=== PATIENT | female | born 1995 | race Caucasian/White ===

== ENCOUNTER 2022-01-19 22:21 | Inpatient (IN) ==
[~2022-01-19 22:21] MED LIST: *HR* Nalbuphine 10 MG/ML AMPUL IV PRN; Azithromycin 500 MG in 0.9 % Sodium Chloride 250 ML IVPB PRN; Famotidine 20 MG/2 ML VIAL IVP PRN; Metoclopramide 10 MG/2 ML VIAL IVP PRN; Naloxone 0.4 MG/ML INJ IVP PRN; Ondansetron 4 MG/2 ML VIAL IVP PRN
[2022-01-19 22:42] LABS: Basophils % 0.2 %; Eosinophils # 0.1 K/mcL (0.0-0.6); Eosinophils % 0.9 %; Hemoglobin 12.3 g/dL (11.5-15.4); Immature Granulocytes % 1.3 % (0-4); Lymphocytes # 2.3 K/mcL (0.6-4.6); Lymphocytes % 17.4 %; Mean Corpuscular HGB Conc 34.2 g/dL (31.6-35.5); Mean Corpuscular Hemoglobin 31.5 pg (28.0-33.3); Mean Corpuscular Volume 92.3 fL (83.0-100.0); Mean Platelet Volume 9.8 fL (9.4-12.4); Monocytes % 7.4 %; Neutrophils # 9.7 K/mcL (1.6-8.9); Platelet Count 184 K/mcL (140-400); Red Cell Distribution Width 13.4 % (11.5-14.5); Segmented Neutrophils % 72.8 %; White Blood Count 13.4 K/mcL (4.3-11.1)
[2022-01-19 22:53] LABS: Amphetamine Screen,Urine Negative ng/mL (Cutoff=1000); Barbiturate Screen,Urine Negative ng/mL (Cutoff=200); Benzodiazepines Screen,Urine Negative ng/mL (Cutoff=200); Cannabinoid Screen,Urine Negative ng/mL (Cutoff = 50); Cocaine Screen,Urine Negative ng/mL (Cutoff= 300); Opiate Screen,Urine Negative ng/mL (Cutoff=300); Phencyclidine Screen,Urine Negative ng/mL (Cutoff=25)
[2022-01-20] MEDS ORDERED: EPHEDrine 50 MG/ML VIAL IVP PRN (01:28)
[2022-01-20] MEDS ORDERED: Epidural Premix (fent/bupiv) 110 ML EP SCH (01:30)
[2022-01-20] MEDS: Ringers Solution, Lactated 1,000 ML IVC SCH ×4 (02:34→22:40)
[2022-01-20] MEDS: Oxytocin 30 UNIT/503 ML BAG IVC SCH ×2 (02:35→14:40)
[2022-01-20] MEDS ORDERED: miSOPROStoL 25 MCG TABLET PO PRN (09:02)
[2022-01-21] MEDS: Ringers Solution, Lactated 1,000 ML IVC SCH
[2022-01-21] MEDS ORDERED: Lidocaine/EPI 1:200k 2% PF 20 ML VIAL ONE (02:29)
[2022-01-21] MEDS ORDERED: Sodium Bicarbonate 50 MEQ/50 ML VIAL ONE (02:29)
[2022-01-21] MEDS ORDERED: Acetaminophen IV 1,000 MG/100 ML BAG IVPB ONE (02:30)
[2022-01-21] MEDS ORDERED: Ondansetron 4 MG/2 ML VIAL ONE (02:30)
[2022-01-21] MEDS ORDERED: Ketorolac 30 MG/ML VIAL ONE (02:30)
[2022-01-21] MEDS ORDERED: *HR* HYDROmorphone PF 0.5 MG/0.5 ML SYRINGE IVP PRN (02:39)
[2022-01-21] MEDS ORDERED: Azithromycin 500 MG in 0.9 % Sodium Chloride 250 ML IVPB PRN (02:42)
[2022-01-21] MEDS ORDERED: *HR* Morphine Sulfate/PF 10 MG/10 ML AMPUL ONE (02:47)
[2022-01-21] MEDS ORDERED: Ringers Solution, Lactated 1,000 ML ONE (02:55)
[2022-01-21] MEDS ORDERED: Ketamine *HR* 500 MG/10 ML MDV ONE (03:49)
[2022-01-21] MEDS ORDERED: Oxytocin 30 UNIT/503 ML BAG IVC SCH (06:37)
[2022-01-21] MEDS ORDERED: Rho Immune Globulin 1,500 UNIT SYRINGE IM ONE (06:37)
[2022-01-21] MEDS ORDERED: *HR* OxyCODONE Immed Rel 5 MG TABLET PO PRN (06:37)
[2022-01-21] MEDS ORDERED: Ringers Solution, Lactated 1,000 ML IVC SCH (06:37)
[2022-01-21] MEDS ORDERED: Simethicone 80 MG TAB.CHEW PO PRN (06:37)
[2022-01-21] MEDS ORDERED: Ondansetron 4 MG/2 ML VIAL IVP PRN (06:37)
[2022-01-21] MEDS ORDERED: Metoclopramide 10 MG/2 ML VIAL IVP PRN (06:37)
[2022-01-21] MEDS: Oxytocin 30 UNIT/503 ML BAG IVC SCH (06:40)
[2022-01-21] MEDS: Prenatal Vit/FA 1 EACH TABLET PO SCH (09:40)
[2022-01-21] MEDS: Acetaminophen 325 MG TABLET PO SCH ×3 (09:41→19:33)
[2022-01-21] MEDS: metroNIDAZOLE 500 MG TABLET PO SCH ×3 (09:41→23:13)
[2022-01-21] MEDS: cephALEXin 500 MG CAPSULE PO SCH ×3 (09:41→23:13)
[2022-01-21] MEDS: Ibuprofen 600 MG TABLET PO SCH ×3 (09:41→19:33)
[2022-01-22] MEDS: Ibuprofen 600 MG TABLET PO SCH ×4 (02:47→20:38)
[2022-01-22 05:00] LABS: Basophils % 0.2 %; Eosinophils # 0.1 K/mcL (0.0-0.6); Eosinophils % 0.4 %; Hematocrit 28.6 % (35.3-44.9); Hemoglobin 9.7 g/dL (11.5-15.4); Immature Granulocytes % 1.1 % (0-4); Lymphocytes # 2.1 K/mcL (0.6-4.6); Lymphocytes % 11.4 %; Mean Corpuscular HGB Conc 33.9 g/dL (31.6-35.5); Mean Corpuscular Volume 94.4 fL (83.0-100.0); Mean Platelet Volume 9.8 fL (9.4-12.4); Monocytes # 1.3 K/mcL (0.0-1.3); Monocytes % 6.9 %; Platelet Count 156 K/mcL (140-400); Red Blood Count 3.03 M/mcL (3.82-4.97); Red Cell Distribution Width 14.1 % (11.5-14.5); White Blood Count 18.7 K/mcL (4.3-11.1)
[2022-01-22] MEDS: Acetaminophen 325 MG TABLET PO SCH ×4 (06:54→20:38)
[2022-01-22] MEDS: Prenatal Vit/FA 1 EACH TABLET PO SCH (09:02)
[2022-01-22] MEDS: cephALEXin 500 MG CAPSULE PO SCH ×3 (09:04→20:38)
[2022-01-22] MEDS: metroNIDAZOLE 500 MG TABLET PO SCH ×3 (09:04→20:38)
[2022-01-23] MEDS: Acetaminophen 325 MG TABLET PO SCH ×2 (06:43→06:46)
[2022-01-23] MEDS: Ibuprofen 600 MG TABLET PO SCH (06:46)
[2022-01-23 08:01] VITALS: BP 113/78; PULSE 97; TEMP 98.1; O2SAT 98
[2022-01-23] MEDS: Prenatal Vit/FA 1 EACH TABLET PO SCH (09:09)
== END 2022-01-23 11:41 | disposition home or self-care (01) | DRG 788 ==
LOC: 1NENULAB → 1NENUOBS 01-21 06:59
PROVIDERS: ADMIT Registered Nurse; ATTEND Registered Nurse